=== PATIENT | male | born 1965 | race Caucasian/White ===

== ENCOUNTER 2021-05-24 10:08 | Emergency (ER) | payer BC, SELFPAY ==
--- NOTE | ~2021-05-24 | CT_ITS ---
EXAMINATION: CT brain wo con DATE: 05/24/2021 11:29 INDICATION: Headache TECHNIQUE: Computed tomography (CT) of the head was performed without intravenous contrast. The mA wa s adjusted according to patient size. Iterative reconstruction technique was employed. Exam dose: 68 1.00 mGy-cm total exam DLP. COMPARISON: None FINDINGS: No intracranial mass lesion or hemorrhage or cerebrovascular accident. No midline shift or mass effect effect. Normal ventricular size. Normal ny-white matter differentiation. No subdural or epidural hematoma. There is prominent lower right maxillary sinus mucoperiosteal thickening, minimal left maxillary sinu s comparison thickening and mild soft tissue thickening of some of the ethmoid septae bilaterally. Limited development and partial opacification of left mastoid air cells. The right mastoid air cells are normally developed and aerated. No fracture or bone destruction of the cranial vault. IMPRESSION: No significant intracranial abnormality Reviewed, dictated and finalized at [facility]. Reviewed, dictated and finalized at [facility]. 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
--- NOTE | ~2021-05-24 | XR_ITS ---
XR ankle RT min 3V DATE: 05/24/2021 11:32 INDICATION: Lateral right ankle pain TECHNIQUE: 4 views COMPARISON: None FINDINGS: Prominent posterior calcaneal enthesopathy. Mild lateral ankle soft tissue swelling. No recent fracture or dislocation of the ankle or disruption of the ankle mortise. No periosteal reaction or bone destruction. IMPRESSION: Mild lateral ankle soft tissue swelling; no recent fracture or dislocation Reviewed, dictated and finalized at [facility]. 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
--- NOTE | ~2021-05-24 | CT_ITS ---
EXAMINATION: CT facial & cervical spine wo DATE: 05/24/2021 11:29 INDICATION: Headache, neck pain. Possible mandible fracture. TECHNIQUE: Computed tomography (CT) of the facial bones and maxillofacial region and cervical spine w as performed without intravenous contrast. Automated exposure control and iterative reconstruction te chnique were employed. Exam dose: 528.23 mGy-cm total exam DLP. COMPARISON: None. FINDINGS: There is a linear virtually nondisplaced fracture of the coronoid process of the right side of the mandible. Normal alignment at the temporomandibular joints. No facial fracture is evident otherwise. Frontozygomatic sutures, orbital rims and loving, nasal bones , zygomatic arches and remainder of the facial bones appear intact. Right greater than left maxillary sinus mucoperiosteal thickening. There is ethmoid air cell soft tis zac thickening. There is straightening of the cervical spine. C1 and C2 are normally aligned and the odontoid process is intact. No fracture or dislocation or locked facet or prevertebral soft tissue swelling. Cervical interspaces are well preserved. IMPRESSION: Nondisplaced fracture of the coronoid process of the right mandible Straightening of the cervical spine; no cervical spine fracture or dislocation Reviewed, dictated and finalized at [facility]. Reviewed, dictated and finalized at location [facility]. 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
[2021-05-24 10:24] VITALS: BP 117/93; PULSE 96; RESP 17; TEMP 36.7; O2SAT 98
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
[2021-05-24] MEDS: HYDROcodone/acetaminophen (*CRX) 5-325 MG TABLET 2 TAB PO (13:09)
[2021-05-24] MEDS: TETANUS,DIPHTHERIA,AC PERTUSSIS ADULT (0.5 ML) BOOSTRIX IM (13:09)
== END 2021-05-24 13:55 | disposition home or self-care (01) ==
PROVIDERS: Emergency Provider Nurse Practitioner; PCP Internal Medicine
DX: S02.631A Fracture of coronoid process of right mandible, initial encounter for closed fracture (principal); F17.210 Nicotine dependence, cigarettes, uncomplicated; Z23 Encounter for immunization; Y04.2XXA Assault by strike against or bumped into by another person, initial encounter
CPT/HCPCS: 70450; 70486; 72125; 73610; 90471; 90715; 99284; A9270

== ENCOUNTER 2021-08-29 07:19 | Outpatient (CLI) | payer BC, SELFPAY ==
--- NOTE | 2021-09-02 15:44 | WPDHOMESLEEP ---
Sleep Study - Home Unattended Date of Study: 08/29/21 Ordering Provider: Tutu Yuan DO Interpreting Provider: Netta Mendoza DO Home Sleep Study Type: Apnea Link Air Height: 1.8 m Weight: 108.862 kg Body Mass Index: 33.5 Neck Circumference (inches): 16 [place]: 14 Reason for Sleep Study Witnessed apneas Sleep History The patient is a 55 year male with GERD tobacco abuse and obesity that home sleep test ordered by his primary care physician for evaluation of sleep apnea. The patient occasionally awakens from sleep short. He constantly awakens at night with heartburn, belching or cough. He constantly snores loud enough that others complain. He occasionally has trouble sleeping when he has a cold. He frequently wakes gasping for throughout the night. He frequently has breathing problems at night observed by himself. He occasionally sweats excessively at night. He occasionally has heart palpitations or irregular heartbeats during the night. He frequently falls asleep during the day but never while driving. He occasionally experiences loss of muscle tone when extremely emotional. He frequently has trouble at school or work due to sleepiness. He frequently feels unable to move when waking up her falling asleep. He denies hypnagogic / hypnopompic hallucinations. He feeling pretty good sleep. He occasionally has rarely remembers his dreams. He frequently has racing through his mind. He frequently feels sad and depressed. He constantly has anxiety. He constantly has tension. He occasionally notices parts of his body jerk he occasionally kicks during the night. He constantly has crawling and aching feelings in his legs. He frequently has leg pain during night. Rarely grinds his teeth during sleep and rarely awakens morning jaw pain. He is frequently bothered by pain during the day and occasionally awakened by pain during the. He constantly wakes stiff. He constantly wakes up with sore achy muscles. He constantly wakes up pain in the neck, spine in other joints he goes to bed at 3:00 a.m. both weekdays and weekends. It takes him 5 minutes to fall. He wakes up several times throughout. When he awakens he will I watch TV year plan is. Wakes up between 7 and 8:00 a.m. both weekdays weekends. He typically gets 10 hours of day he will stay in bed few minutes after waking the morning. He currently lives with his adult child that has a traumatic brain injury he does not consume any caffeinated beverages within 2 hours of bedtime. He does engage in physical exercise before bedtime he will read and watch television asleep. He will take naps in the afternoon or the evening but refreshing. He does not consume any caffeinated beverages throughout the day. He will have 2 alcoholic beverages day. He currently smokes 1 pack of cigarettes per day. He does use recreational marijuana PMF Past Medical History Medical History Colon cancer screening Heartburn Shoulder pain Vision changes Weakness Surgical History Surgical History History of surgical removal of ganglion cyst Family History Family History Mother Diabetes mellitus Father Diabetes mellitus Grandparent Cancer Social History Social History Smoking packs per day: 1 Smoking cigarettes per day: 20.0 Years smoked: 30 Smoking pack-years: 30.00 Smoking status: Current every day smoker Tobacco type: cigarettes Second hand tobacco smoke exposure: Yes Additional smoking assessment comments: smokes 1PPD Alcohol intake: current Drinks per week: 6 Alcohol use details: 6 beers per week Substance use: current Substance use type: marijuana Other substance usage details: half ounce per week [facility]
[2021-09-02 15:55] VITALS: BMI 33.5
== END 2021-09-02 15:20 | disposition home or self-care (01) ==
LOC: ANHCSM 07:20
PROVIDERS: PCP Internal Medicine; Visit Provider Internal Medicine
DX: G47.31 Primary central sleep apnea (principal)
CPT/HCPCS: 95806

== ENCOUNTER 2021-09-02 00:05 | Day surgery (SDC) | payer BC, SELFPAY ==
[2021-08-18 14:49] VITALS: BMI 33.1
[2021-09-02 07:47] VITALS: BP 140/88; PULSE 83; RESP 16; TEMP 36.1; O2SAT 98
[2021-09-02] MEDS: LACTATED RINGERS 1,000 ML 150 ML IV CONT (08:00)
--- NOTE | 2021-09-02 08:36 | WPDANESEPPF ---
Anes - Initial Pre Proc Eval Procedure: Operation Date: 09/02/21 09:00 Proposed Procedures p Screening Colonoscopy - Ethan Kennedy MD Date/Time: 09/02/21 08:36 Surgeon: Ethan Kenneyd MD Pre Op Diagnosis: neoplasm screening Patient Data Age: 55 Gender: M Height: 1.8 m Weight: 105.6 kg Last Vital Signs Temp 97 F L 09/02/21 07:47 Pulse 83 09/02/21 07:47 Resp 16 09/02/21 07:47 BP 140/88 09/02/21 07:47 Pulse Ox 98 09/02/21 07:47 Allergies Allergy/AdvReac Type Severity Reaction Status Date / Time No Known Allergies Allergy Mild Verified 09/02/21 07:47 Home Medications Medication Instructions Recorded Confirmed Type famotidine 20 mg tablet 20 mg PO DAILY #30 tablet 07/03/21 08/19/21 Rx Patient hx anesthesia problems: none Family hx anesthesia problems: none Results Review: All pre-operative results and documents have been reviewed as part of the pre-operative evaluation. [facility] Past Medical History Medical History Heartburn Shoulder pain Vision changes Weakness Surgical History Surgical History History of surgical removal of ganglion cyst Family History Family History Mother Diabetes mellitus Father Diabetes mellitus Grandparent Cancer Social History Social History Smoking packs per day: 1 Smoking cigarettes per day: 20.0 Years smoked: 30 Smoking pack-years: 30.00 Smoking status: Current every day smoker Tobacco type: cigarettes Second hand tobacco smoke exposure: Yes Additional smoking assessment comments: smokes 1PPD Alcohol intake: current Drinks per week: 6 Alcohol use details: 6 beers per week Substance use: current Substance use type: marijuana Other substance usage details: half ounce per week Living arrangements: with family Gender identity (if verbalized by the patient): Male Spiritual care concerns: No Anes - Eval Final PreProcedure Day of Procedure 09/02/21 08:36 Patient weight: obese Heart: regular rate and rhythm Airway: Mallampati scale class II Neurological: alert and oriented Last oral intake: >/= 8 hours ASA classification: III Emergent: no Anesthetic plan: proceed Anesthesia type and monitoring: general GIVS and standard monitoring Results Review: All pre-operative results and documents have been reviewed as part of the pre-operative evaluation. Informed Consent: The patient's anesthetic plan and its attendant risks and benefits were discussed with the patient/family/POA. Questions were solicited and answers provided to the satisfaction of the patient/family/POA.
--- NOTE | 2021-09-02 08:51 | PM.HPGS ---
History of Present Illness History of Present Illness Consent: Risks, benefits, and alternatives have been discussed and questions answered. Patient agrees to proceed with procedure. Chief complaint: neoplasm screening Narrative: Jossue Carmona is a 55 year old male here for first screening colonoscopy Review of Systems Constitutional: Constitutional: Denies headache(s) and Denies weakness Eyes: Eyes: Denies blurry vision ENT: Reports Normal hearing present, Denies headache(s) and Denies neck pain Cardiovascular: Cardiovascular: Denies chest pain and Denies dyspnea Respiratory: Respiratory: Denies dyspnea Gastrointestinal: Gastrointestinal: Reports no additional gastrointestinal complaints Genitourinary: Genitourinary: Denies dysuria Musculoskeletal: Musculoskeletal: Denies neck pain Integumentary/Breasts: Skin/Breast: Denies dry skin Neurologic: Reports Normal hearing present, Denies headache(s) and Denies weakness Psychiatric: Psychiatric: Denies anxiety Endocrine: Endocrine: Denies change in body appearance Hematologic/Lymphatic: Hematologic/Lymphatic: Denies easy bleeding Allergic/Immunologic: Allergic/Immunologic: Denies urticaria PMF Past Medical History Medical History (Updated 09/02/21 @ 08:51 by Ethan Kennedy MD) Colon cancer screening Heartburn Shoulder pain Vision changes Weakness Surgical History Surgical History History of surgical removal of ganglion cyst Family History Family History Mother Diabetes mellitus Father Diabetes mellitus Grandparent Cancer Social History Social History Smoking packs per day: 1 Smoking cigarettes per day: 20.0 Years smoked: 30 Smoking pack-years: 30.00 Smoking status: Current every day smoker Tobacco type: cigarettes Second hand tobacco smoke exposure: Yes Additional smoking assessment comments: smokes 1PPD Alcohol intake: current Drinks per week: 6 Alcohol use details: 6 beers per week Substance use: current Substance use type: marijuana Other substance usage details: half ounce per week Living arrangements: with family Gender identity (if verbalized by the patient): Male Spiritual care concerns: No Meds Home Medications and Allergies Home Medications Medication Instructions Recorded Confirmed Type famotidine 20 mg tablet 20 mg PO DAILY #30 tablet 07/03/21 08/19/21 Rx Allergies Allergy/AdvReac Type Severity Reaction Status Date / Time No Known Allergies Allergy Mild Verified 09/02/21 07:47 Vital Signs Vital Signs - 24 hr 09/02/21 07:47 Temperature 97 F L Pulse Rate 83 Respiratory Rate 16 Blood Pressure 140/88 Pulse Oximetry 98 Exam Const: General: comfortable and no acute distress HENMT: General nose exam: Normal nares present Eyes: General: appearance normal, both eyes and all related structures Neck: Neck: no JVD Resp: Auscultation: clear to auscultation bilaterally Cardio: Rate: regular rate Rhythm: regular rhythm GI: Inspection: non-distended GI Palp: Yes Soft to palpation Skin: General skin exam: normal color Neuro: General: gait normal Speech: normal speech Extrem: General: normal to inspection Psych: Mental Status: mental status grossly normal Assessment and Plan Assessment and plan (1) Colon cancer screening: Code(s): Z12.11 - Encounter for screening for malignant neoplasm of colon Status: Acute Assessment and Plan: colonoscopy
[2021-09-02 09:15] VITALS: BP 104/57; PULSE 83; RESP 19; O2SAT 96
[2021-09-02 09:25] VITALS: BP 121/89; PULSE 67; RESP 22; O2SAT 99
[2021-09-02 09:35] VITALS: BP 122/88; PULSE 77; RESP 22; O2SAT 98
== END 2021-09-02 10:03 | disposition home or self-care (01) ==
PROVIDERS: PCP Internal Medicine; Visit Provider Internal Medicine Gastroenterology
PROC: 0DJD8ZZ Inspection of Lower Intestinal Tract, Via Natural or Artificial Opening Endoscopic (ICD-10-PCS; CPT 45378; principal; 2021-09-02 09:00)
DX: Z12.11 Encounter for screening for malignant neoplasm of colon (principal); D12.4 Benign neoplasm of descending colon; K64.8 Other hemorrhoids; R12 Heartburn; F17.210 Nicotine dependence, cigarettes, uncomplicated
CPT/HCPCS: 45385; 88305; J2704; J7120

== ENCOUNTER 2021-09-30 13:21 | Outpatient (CLI) | payer BC, SELFPAY ==
--- NOTE | 2021-09-30 13:37 | ECHO_ITS ---
Patient Info Name: Jossue Carmona Age: 56 years : 1965 Gender: Male Ht: 71 in Wt: 237 lbs BSA: 2.35 m2 HR: 75 bpm BP: 124 / 70 mmHg Heart Rhythm: Sinus Rhythm Technical Quality: Fair Exam Date: 09/30/2021 1:58 PM Exam Location: [facility] Patient Status: Outpatient Admit Date: 09/30/2021 Staff Ordering Physician: Tutu Yuan DO Adhesive Bandage Making Operator: Little Walker RDCS Attending Provider: Tutu Yuan DO Referring Physician: Kwabena WESLEY; Exam Type: CA echo doppler color flow Study Info Indications G47.33 - OBSTRUCTIVE SLEEP APNEA Complete two-dimensional, color flow and Doppler transthoracic echocardiogram is performed. Summary 1. Complete two-dimensional, color flow and Doppler transthoracic echocardiogram is performed. 2. Left ventricular chamber dimension is normal. 3. Left ventricular systolic function is normal, estimated at 60-65%. 4. The left ventricular diastolic function is grade II diastolic dysfunction. 5. E/e' 9 is minimally elevated. Left Ventricle E/e' 9 is minimally elevated. Left ventricular chamber dimension is normal. Left ventricular systolic function is normal, estimated at 60-65%. The left ventricular diastolic function is grade II diastolic dysfunction. Right Ventricle Right ventricular systolic function is normal and with normal TAPSE 2.1 cm. Right ventricular chamber dimension is normal. Left Atria Left atrial chamber dimension is normal. Right Atria Right atrial chamber dimension is normal. Aortic Valve The aortic valve is trileaflet. There is no aortic valve stenosis. There is no aortic valve regurgitation. Pulmonic Valve There is no pulmonic regurgitation. Mitral Valve There is no mitral valve stenosis. There is no mitral valve regurgitation. Tricuspid Valve There is no tricuspid valve regurgitation. Pericardium/Pleural There is no pericardial effusion. Inferior Vena Cava Normal inferior vena cava with >50% collapse upon inspiration consistent with normal right atrial pressure, 5 mmHg. Aorta The aortic root size at the sinus of Valsalva is normal. Left Ventricular Outflow Tract Name Value Normal LVOT 2D LVOT Diameter 2.0 cm LVOT Doppler LVOT Peak Gradient 5 mmHg LVOT Mean Gradient 2 mmHg LVOT VTI 24 cm LVOT VTI/AV VTI Ratio 0.9 LVOT Stroke Volume 77 ml LVOT CO 4.7 l/min LVOT CI 2.0 l/min/m2 Pulmonic Valve Name Value Normal RVOT Doppler RVOT Peak Gradient 2 mmHg PV Doppler PV Peak Gradient 3 mmHg Mitral Valve
== END 2021-09-30 13:22 | disposition home or self-care (01) ==
LOC: ANHCARD 13:24
PROVIDERS: PCP Internal Medicine; Visit Provider Internal Medicine
DX: G47.31 Primary central sleep apnea (principal)
CPT/HCPCS: 93306

== ENCOUNTER 2021-10-03 07:51 | Outpatient (CLI) | payer BC, SELFPAY ==
--- NOTE | 2021-10-20 09:56 | WPDSLEEPSTUD ---
Sleep Study Date of Study: 10/03/21 Ordering Provider: Tutu Yuan DO Interpreting Physician: Haley Taylor MD Sleep Study Type: BiPAP Titration Height: 1.8 m Weight: 108.862 kg Body Mass Index: 33.5 Neck Circumference (inches): 17 [place]: 16 Reason for Sleep Study * Hypersomnolence * 08/29/2021 ApneaLink with severe mixed sleep apnea with an apnea hypopnea index if 62.6, desaturation to 83% and a central apnea index of 13.5. He presents for a titration. The patient had overall AHI of 62.6 with desaturation down to 83%.? This is consistent with severe sleep apnea.? The patient had a central apnea index of 13.5 which is elevated (normal is <5). * 09/30/2021 Echo - Left ventricular systolic function is normal, estimated at 60-65%.? 4. The left ventricular diastolic function is grade II diastolic dysfunction. Sleep History Jossue Carmona is a 56 year male with complaints of hypersomnolence. The patient occasionally awakens from sleep short.? He constantly awakens at night with heartburn, belching or cough.? He constantly snores loud enough that others complain.? He occasionally has trouble sleeping when he has a cold.? He frequently wakes gasping for throughout the night.? He frequently has breathing problems at night observed by himself.? He occasionally sweats excessively at night.? He occasionally has heart palpitations or irregular heartbeats during the night.? He frequently falls asleep during the day but never while driving.? He occasionally experiences loss of muscle tone when extremely emotional.? He frequently has trouble at school or work due to sleepiness.? He frequently feels unable to move when waking up her falling asleep.? He denies hypnagogic / hypnopompic hallucinations.? He feeling pretty good sleep.? He occasionally has rarely remembers his dreams.? He frequently has racing through his mind.??He frequently feels sad and depressed.? He constantly has anxiety.? He constantly has tension.? He occasionally notices parts of his body jerk he occasionally kicks during the night.? He constantly has crawling and aching feelings in his legs.? He frequently has leg pain during night.? Rarely grinds his teeth during sleep and rarely awakens morning jaw pain.? He is frequently bothered by pain during the day and occasionally awakened by pain during the.? He constantly wakes stiff.? He constantly wakes up with sore achy muscles.? He constantly wakes up pain in the neck, spine in other joints Normal bedtime is 3:00 a.m., taking 5 minutes to fall asleep, waking several times throughout the night. While wakes at night, he watches TV until he falls asleep, waking between 7:00 to 8:00 a.m.. He reports getting 10 hours of sleep. He currently lives with his adult child who has a traumatic brain injury. He will take naps in the afternoon or the evening. ? Habits: Tobacco: 1 pack of cigarettes a day. No caffeine. Alcohol: 2 per day. He does use recreational marijuana. [facility] Past Medical History Medical History Colon cancer screening Heartburn Shoulder pain Vision changes Weakness Surgical History Surgical History History of surgical removal of ganglion cyst Family History Family History Mother Diabetes mellitus Father Diabetes mellitus Grandparent Cancer Social History Social History Smoking packs per day: 1 Smoking cigarettes per day: 20.0 Years smoked: 30 Smoking pack-years: 30.00 Smoking status: Current every day smoker Tobacco type: cigarettes Second hand tobacco smoke exposure: Yes Additional smoking assessment comments: smokes 1PPD Alcohol intake: current Drinks per week: 6 Alcohol use details: 6 beers per week Substance use: current Substance use type: marijuana Oth
[2021-10-20 11:35] VITALS: BMI 33.5
== END 2021-10-04 07:02 | disposition home or self-care (01) ==
LOC: ANHCSM 07:53
PROVIDERS: PCP Internal Medicine; Visit Provider Internal Medicine
DX: G47.39 Other sleep apnea (principal); G25.81 Restless legs syndrome
CPT/HCPCS: 95811

== ENCOUNTER 2022-01-02 12:27 | Emergency (ER) | payer BC, SELFPAY ==
[2022-01-02 12:35] VITALS: BP 117/72; PULSE 80; RESP 16; TEMP 36.6; O2SAT 96
--- NOTE | 2022-01-02 12:37 | ED.SKABFB ---
HPI - Skin/Abscess/Foreign Bdy General Chief complaint: Skin/Abscess/Foreign Body Stated complaint: RASH ON SIDE/FALL/POCKETS FULL OF BLOOD Time Seen by Provider: 01/02/22 12:37 Source: patient Mode of arrival: ambulatory Limitations: no limitations History of Present Illness HPI narrative: 56-year-old male presented for complaint of rash to the right lower abdomen for about 5 days. Endorses red painful blistered lesions to the site. He has not taken anything for symptoms. He also endorses for 1 year, a few scattered lesions to the mid lower abdomen which he relates to sweating while outside. He states over the last week these lesions drained purulent material. He denies abdominal pain, nausea, vomiting, fevers or chills. Related Data Allergies Allergy/AdvReac Type Severity Reaction Status Date / Time No Known Allergies Allergy Mild Verified 09/02/21 07:47 Review of Systems Review of Systems: CONSTITUTIONAL: Denies body aches, fever, chills, or sweats. EYES: Denies visual changes, redness, or discharge. ENT: Denies rhinorrhea, congestion CARDIOVASCULAR: Denies chest pain, palpitations, or edema. RESPIRATORY: Denies cough or dyspnea. GASTROINTESTINAL: Denies abdominal pain, nausea, vomiting, or diarrhea. SKIN: painful rash right lower abdomen, draining lesions to mid low abdomen MUSCULOSKELETAL: Denies joint pain, or myalgia. NEUROLOGIC: Denies headache, numbness, tingling, or weakness. [facility]LY [facility] Past Medical History Medical History Colon cancer screening Heartburn Shoulder pain Vision changes Weakness Surgical History Surgical History History of surgical removal of ganglion cyst Family History Family History Mother Diabetes mellitus Father Diabetes mellitus Grandparent Cancer Social History Social History Smoking packs per day: 1 Smoking cigarettes per day: 20.0 Years smoked: 30 Smoking pack-years: 30.00 Smoking status: Current every day smoker Tobacco type: cigarettes Second hand tobacco smoke exposure: Yes Additional smoking assessment comments: smokes 1PPD Alcohol intake: current Drinks per week: 6 Alcohol use details: 6 beers per week Substance use: current Substance use type: marijuana Other substance usage details: half ounce per week Gender identity (if verbalized by the patient): Male Spiritual care concerns: No Comments At time of signature, I have reviewed and agree with nursing past medical, surgical, social and family history unless otherwise noted. Please see nursing chart for further information. There is no relevant family history pertinent to the presenting complaint Exam Narrative: GENERAL: Well-appearing EYES: conjunctivae clear, and EOMI. ENT: Mucous membranes moist. Oropharynx without edema, erythema or lesions. NECK: Supple. No lymphadenopathy CHEST: Clear to auscultation. HEART: Regular rate and rhythm. SKIN: Warm, dry. Right lower abdomen with erythematous vesicles approx [id number] c/w zoster; mid lower abdomen with scattered flat abscesses no active drainage or fluctuance, nontender, no apparent cellulitis NEURO: Alert and oriented x3. Course Course Emergency Course: Patient is aware of diagnosis, understands and agrees to treatment plan. Anticipatory guidance given. Patient agrees to follow-up as directed and is aware of reasons to seek care at the emergency department. Portions of this record may have been created with voice recognition software Level of Care: Express Care Visit Vital Signs Vital signs: Vital Signs Temperature 97.8 F 01/02/22 12:35 Pulse Rate 80 01/02/22 12:35 Respiratory Rate 16 01/02/22 12:35 Blood Pressure 117/72 01/02/22 12:35 Pulse Oximetry 96
== END 2022-01-02 12:54 | disposition home or self-care (01) ==
PROVIDERS: Emergency Provider Nurse Practitioner Family
DX: B02.9 Zoster without complications (principal); L02.11 Cutaneous abscess of neck; F17.210 Nicotine dependence, cigarettes, uncomplicated; R12 Heartburn
CPT/HCPCS: 99213; G0463

== ENCOUNTER 2023-02-02 11:03 | Outpatient (CLI) | payer OTHER, SELFPAY ==
--- NOTE | ~2023-02-02 | XR_ITS ---
EXAMINATION: XR chest 2V DATE: 02/02/2023 12:07 INDICATION: Cough. TECHNIQUE: Frontal and lateral views of the chest were obtained on 3 radiographs. COMPARISON: Chest 2 views 11/23/2008 FINDINGS: There is no pneumonia, pleural effusion, or pneumothorax. The heart size is normal. There i s mild chronic anterior wedging of multiple vertebral bodies. IMPRESSION: 1. No acute cardiopulmonary disease. Reviewed, dictated and finalized at location E.
[2023-02-02 11:32] LABS: Basophils Absolute Auto 0.03 K/mm3 (0.00-0.10); Basophils Percent Auto 0.3 % (0.0-1.0); Eosinophils Absolute Auto 0.16 K/mm3 (0.02-0.50); Eosinophils Percent Auto 1.6 % (1.0-6.0); Hematocrit 46.6 % (40.0-54.0); Hemoglobin 16.3 g/dL (14.0-18.0); Immature Granulocyte Absolute 0.04 K/mm3 (0.00-0.00); Immature Granulocyte Percent A 0.4 % (0.0-0.0); Lymphocytes Absolute Auto 2.57 K/mm3 (1.10-4.50); Lymphocytes Percent Auto 25.2 % (18.0-42.0); Mean Corpuscular Hemoglobin 31.6 pg (27.0-31.0); Mean Corpuscular Volume 90.3 fL (78.0-102.0); Mean Platelet Volume 8.9 fl (8.7-11.0); Monocytes Absolute Auto 0.61 K/mm3 (0.10-0.90); Neutrophils Absolute Auto 6.8 K/mm3 (1.7-7.2); Neutrophils Percent Auto 66.5 % (50.0-70.0); Platelet Count Result 216 K/mm3 (150-420); Red Blood Count 5.16 M/mm3 (4.70-6.10); Red Cell Distribution Width 11.6 % (11.6-14.4); White Blood Count 10.2 K/mm3 (4.8-10.8)
[2023-02-02 12:05] LABS: Alanine Aminotransferase 26 U/L (16-63); Alkaline Phosphatase 125 U/L (46-116); Anion Gap 11 mmol/L (8-16); Aspartate Amino Transferase 12 U/L (15-37); Bilirubin,Total 0.4 mg/dL (0.00-1.00); Blood Urea Nitrogen 17 mg/dL (7-18); Calcium 9.4 mg/dL (8.5-10.1); Carbon Dioxide 26 mmol/L (21-32); Chloride 104 mmol/L (98-108); Cholesterol 144 mg/dL (0-200); Estimated Glomerular Filt Rate > 60; Glucose 102 mg/dL (70-99); HDL Direct 28 mg/dL (40-60); LDL Cholesterol Calculated 82 mg/dL (<130); Osmolality Calculated 293 mOsm/kg (285-295); Potassium 4.5 mmol/L (3.5-5.1); Sodium 141 mmol/L (136-145); Triglycerides 169 mg/dL (0-150)
== END 2023-02-02 11:04 | disposition home or self-care (01) ==
PROVIDERS: PCP Family Medicine; Visit Provider Family Medicine
DX: R05.3 Chronic cough (principal)
CPT/HCPCS: 36415; 71046; 80053; 80061; 85025

== ENCOUNTER 2023-08-25 11:13 | Outpatient (CLI) | payer OTHER, SELFPAY ==
[2023-08-25 11:36] LABS: Basophils Absolute Auto 0.04 K/mm3 (0.00-0.10); Basophils Percent Auto 0.4 % (0.0-1.0); Eosinophils Absolute Auto 0.11 K/mm3 (0.02-0.50); Eosinophils Percent Auto 1.1 % (1.0-6.0); Hematocrit 46.2 % (40.0-54.0); Immature Granulocyte Absolute 0.04 K/mm3 (0.00-0.00); Immature Granulocyte Percent A 0.4 % (0.0-0.0); Lymphocytes Absolute Auto 3.15 K/mm3 (1.10-4.50); Lymphocytes Percent Auto 30.3 % (18.0-42.0); Mean Corpuscular HGB Conc 34.6 g/dL (32-36); Mean Corpuscular Hemoglobin 30.6 pg (27.0-31.0); Mean Corpuscular Volume 88.3 fL (78.0-102.0); Mean Platelet Volume 8.7 fl (8.7-11.0); Monocytes Absolute Auto 0.59 K/mm3 (0.10-0.90); Monocytes Percent Auto 5.7 % (2.0-11.0); Neutrophils Absolute Auto 6.45 K/mm3 (1.70-7.20); Neutrophils Percent Auto 62.1 % (50.0-70.0); Platelet Count Result 204 K/mm3 (150-420); Red Blood Count 5.23 M/mm3 (4.70-6.10); Red Cell Distribution Width 11.6 % (11.6-14.4); White Blood Count 10.4 K/mm3 (4.8-10.8)
[2023-08-25 12:07] LABS: Alanine Aminotransferase 26 U/L (16-63); Albumin Level 3.9 g/dL (3.4-5.0); Alkaline Phosphatase 114 U/L (46-116); Anion Gap 10 mmol/L (4-12); Aspartate Amino Transferase 16 U/L (15-37); Bilirubin,Total 0.4 mg/dL (0.00-1.00); Blood Urea Nitrogen 17 mg/dL (7-18); Calcium 9.1 mg/dL (8.5-10.1); Carbon Dioxide 27 mmol/L (21-32); Chloride 104 mmol/L (98-108); Cholesterol 176 mg/dL (0-200); Estimated Glomerular Filt Rate > 60; Glucose 95 mg/dL (70-99); HDL Direct 38 mg/dL (40-60); LDL Cholesterol Calculated 106 mg/dL (<130); Osmolality Calculated 293 mOsm/kg (285-295); Potassium 4.7 mmol/L (3.5-5.1); Sodium 141 mmol/L (136-145); Triglycerides 159 mg/dL (0-150)
== END 2023-08-25 11:14 | disposition home or self-care (01) ==
LOC: CHSLAB 11:14
PROVIDERS: PCP Family Medicine; Visit Provider Family Medicine
DX: Z00.00 Encounter for general adult medical examination without abnormal findings (principal)
CPT/HCPCS: 36415; 80053; 80061; 85025